=== PATIENT | male | born 2000 | race African-American/Black ===

== ENCOUNTER 2024-06-20 12:57 | Inpatient (IN) ==
[2024-06-20] MEDS: Lactated Ringers 1000 ml BAG 1,000 ML IV ONE ×2 (13:24)
[2024-06-20] MEDS: Piperacillin/Tazobac 3.375 BAG 3.375 GM/100 ML BAG IV ONE ×2 (13:25→21:19)
[2024-06-20 13:43] LABS: Hematocrit 45.5 % (38-53); Hemoglobin 15.1 g/dL (13.2-16.3); Mean Corpuscular Hemoglobin 32.4 pg (27-33); Mean Corpuscular Hgb Conc 33.3 g/dL (31-36); Mean Corpuscular Volume 97.4 fL (80-97); Mean Platelet Volume 8.9 fL (7.5-11.2); Platelet Count 215 10^3/uL (150-450); Red Blood Count 4.67 10^6/uL (4.06-5.63); Red Cell Distribution Width 15.5 % (12-17); White Blood Count 17.7 10^3/uL (3.6-10.2)
[2024-06-20 14:19] LABS: ABS Basophils 0.2 10^3/uL (0.0-0.1); ABS Lymphocytes 1.4 10^3/uL (1.0-4.8); ABS Monocytes 1.5 10^3/uL (0.0-1.1); ABS Neutrophils 14.6 10^3/uL (1.5-7.6); ABS Nucleated RBC 0.01 10^3/ul; Eosinophil % 0.3 %; Lymphocyte % 7.8 %; RBC Morphology Normal (Normal); Toxic Granulation 1+
[2024-06-20 14:29] LABS: Urine Appearance Clear; Urine Bilirubin Negative (Negative); Urine Blood Negative (Negative); Urine Color Light-Yellow; Urine Glucose Negative (Negative); Urine Ketones Negative (Negative); Urine Nitrite Negative (Negative); Urine Protein Negative (Negative); Urine Specific Gravity 1.013 (1.002-1.030); Urine Urobilinogen Negative (Negative); Urine pH 7.5 (5.0-8.0)
[2024-06-20 14:34] LABS: Activated Partial Thrombo Time 27.6 seconds (26.0-38.0); INR 1.29 (0.85-1.14)
[2024-06-20] MEDS: Ondansetron 4 mg VIAL 2 MG/ML 2 ml VIAL IV ONE (14:35)
[2024-06-20 14:42] LABS: Albumin 5.1 g/dL (3.2-5.2); Albumin/Globulin Ratio 2.1 (1-3); C Reactive Protein 4.35 mg/L (<8.01); Calcium 11.2 mg/dL (8.6-10.3); Creatinine, Serum 1.72 mg/dL (0.67-1.17); Globulin 2.4 g/dL (2-4); Potassium 4.6 mmol/L (3.5-5.0); Total Bilirubin 0.5 mg/dL (0.2-1.0); Total Protein 7.5 g/dL (6.4-8.9); eGFR CKD-EPI 56.9 (>60)
[2024-06-20 14:46] LABS: High Sensitivity Troponin 1 Hr 9 pg/mL (<20)
[2024-06-20] MEDS: Vancomycin 1,000 MG in NS 0.9% 250 ml 250 ML IVPB ONE (15:06)
[2024-06-20] MEDS: Iohexol 300 (CONTRAST) 10 ML SDV IV ONE (15:16)
[2024-06-20] MEDS: Prochlorperazine 5 mg/ml 2 ml VIAL (10 mg) IV ONE (15:58)
[2024-06-20] MEDS ORDERED: Zosyn per Pharmacy NOTE FOLLOW UP SCH ×2 (20:00)
[2024-06-20] MEDS ORDERED: Vancomycin per Pharmacy 1 EA NOTE FOLLOW UP SCH (20:00)
[2024-06-20] MEDS ORDERED: Acetaminophen IV 1 GM/100ML 1,000 MG/100 ML BAG IV ONE (20:04)
[2024-06-20] MEDS: Acetaminophen IV 1 GM/100ML 1,000 MG/100 ML BAG IV SCH (20:05)
[2024-06-20] MEDS ORDERED: Piperacillin/Tazobac 3.375 BAG 3.375 GM/100 ML BAG IV ONE (20:32)
[2024-06-20] MEDS: Lactated Ringers 1000 ml BAG 1,000 ML IV SCH ×2 (20:37→21:59)
[2024-06-20] MEDS ORDERED: Albuterol HFA INHALER 8 gm MDI INH PRN (20:50)
[2024-06-20] MEDS ORDERED: Amoxicillin/Clavul 875/125 TAB (Augmentin 875 tab) PO SCH (21:00)
[2024-06-21] MEDS: Vancomycin 1000 MG in NS 0.9% 250 ML IVPB SCH ×2 (01:53→06:18)
[2024-06-21] MEDS: ZOSYN 3.375 GM Q8H per EXTENDED INFUSION IV SCH ×2 (01:54→01:59)
[2024-06-21] MEDS ORDERED: Vancomycin 1000 MG in NS 0.9% 250 ML IVPB SCH (06:00)
[2024-06-21] MEDS: CMCS: FLUTICAS/UMECLI/VILANT 200-62.5-25 MDI (NF) INH SCH (07:44)
[2024-06-21 08:11] LABS: Hematocrit 39.3 % (38-53); Hemoglobin 13.3 g/dL (13.2-16.3); Mean Corpuscular Hemoglobin 32.8 pg (27-33); Mean Corpuscular Hgb Conc 33.8 g/dL (31-36); Mean Platelet Volume 8.8 fL (7.5-11.2); Platelet Count 154 10^3/uL (150-450); Red Blood Count 4.05 10^6/uL (4.06-5.63); Red Cell Distribution Width 15.7 % (12-17); White Blood Count 15.6 10^3/uL (3.6-10.2)
[2024-06-21 08:57] LABS: Albumin 3.8 g/dL (3.2-5.2); Albumin/Globulin Ratio 2.1 (1-3); Calcium 9.2 mg/dL (8.6-10.3); Creatinine, Serum 1.62 mg/dL (0.67-1.17); Globulin 1.8 g/dL (2-4); Potassium 3.9 mmol/L (3.5-5.0); Total Bilirubin 0.7 mg/dL (0.2-1.0); Total Protein 5.6 g/dL (6.4-8.9); eGFR CKD-EPI 61.2 (>60)
[2024-06-21 09:13] LABS: ABS Basophils 0.1 10^3/uL (0.0-0.1); ABS Lymphocytes 2.4 10^3/uL (1.0-4.8); ABS Monocytes 1.5 10^3/uL (0.0-1.1); ABS Neutrophils 11.6 10^3/uL (1.5-7.6); ABS Nucleated RBC 0.01 10^3/ul; Eosinophil % 0.1 %; Lymphocyte % 15.2 %
[2024-06-21] MEDS: POSACONAZOLE 100 MG PO SCH (09:44)
[2024-06-21 17:02] LABS: Fungitell Qualitative Result Negative (Negative); Fungitell Quantitative Value <31 pg/mL (<60 pg/mL)
[2024-06-21] MEDS: PTO: Ruxolitinib (NF) 5 MG TABLET PO SCH (21:45)
[2024-06-22 06:55] LABS: ABS Basophils 0.1 10^3/uL (0.0-0.1); ABS Eosinophils 0.2 10^3/uL (0.0-0.5); ABS Lymphocytes 2.8 10^3/uL (1.0-4.8); ABS Neutrophils 9.9 10^3/uL (1.5-7.6); Eosinophil % 1.6 %; Hematocrit 37.6 % (38-53); Hemoglobin 12.8 g/dL (13.2-16.3); Lymphocyte % 19.8 %; Mean Corpuscular Hemoglobin 33.3 pg (27-33); Mean Corpuscular Hgb Conc 34.2 g/dL (31-36); Mean Corpuscular Volume 97.5 fL (80-97); Mean Platelet Volume 8.6 fL (7.5-11.2); Platelet Count 158 10^3/uL (150-450); Red Blood Count 3.86 10^6/uL (4.06-5.63); Red Cell Distribution Width 15.1 % (12-17)
[2024-06-22 07:13] LABS: Albumin 3.7 g/dL (3.2-5.2); Albumin/Globulin Ratio 1.9 (1-3); Calcium 8.8 mg/dL (8.6-10.3); Creatinine, Serum 1.18 mg/dL (0.67-1.17); Globulin 1.9 g/dL (2-4); Magnesium 1.7 mg/dL (1.9-2.7); Potassium 3.8 mmol/L (3.5-5.0); Total Bilirubin 0.5 mg/dL (0.2-1.0); Total Protein 5.6 g/dL (6.4-8.9); eGFR CKD-EPI 89.5 (>60)
[2024-06-22] MEDS: Magnesium Sulfate 2 gm BAG 2 GM/50 ML BAG IVPB ONE (07:51)
[2024-06-22] MEDS: Vancomycin Trough Check NOTE FOLLOW UP ONE (08:05)
[2024-06-22 08:34] LABS: Anaplasma phagocytophilum Negative (Negative); B. miyamotoi PCR, B Negative (Negative); Babesia divergens/MO-1 Negative (Negative); Babesia ducani Negative (Negative); Ehrlichia chaffeensis Negative (Negative); Ehrlichia ewingii/canis Negative (Negative); Ehrlichia muris eauclairensis Negative (Negative)
[2024-06-22] MEDS ORDERED: Propofol 10 MG/ML 20 ML BTL ONE (08:44)
[2024-06-22] MEDS ORDERED: Rocuronium 50 mg VIAL 10 mg/ml 5 ml VIAL (50 mg) ONE (08:44)
[2024-06-22] MEDS ORDERED: Lidocaine 2% PF 5 ML VIAL ONE (08:44)
[2024-06-22] MEDS ORDERED: Benzocaine/Butamben/Tetracain (CETACAINE - SINGLE USE) 5 gm TOPICAL ONE (08:45)
[2024-06-22] MEDS ORDERED: fentaNYL 100 mcg/2 ml 50 MCG/ML VIAL ONE (08:48)
[2024-06-22] MEDS ORDERED: Midazolam 2 mg/2 ml VIAL 1 mg/ml 2 ml VIAL (2 mg) ONE (08:48)
[2024-06-22] MEDS ORDERED: Naloxone 0.4 mg VIAL 0.4 mg/ml 1 ml VIAL IV PRN (08:51)
[2024-06-22] MEDS ORDERED: fentaNYL 100 mcg/2 ml 50 MCG/ML VIAL IV PRN (08:51)
[2024-06-22] MEDS ORDERED: Ondansetron 4 mg VIAL 2 MG/ML 2 ml VIAL IV PRN (08:51)
[2024-06-22] MEDS ORDERED: Dexamethasone IV 4 MG/ML VIAL 1 ml VIAL ONE (09:26)
[2024-06-22] MEDS ORDERED: Ondansetron 4 mg VIAL 2 MG/ML 2 ml VIAL ONE (09:26)
[2024-06-22] MEDS ORDERED: Albuterol 2.5mg/3 ml (0.083%) NEB.SOLN INH ONE (10:07)
[2024-06-22] MEDS ORDERED: Albuterol/Ipratropium NEB.SOL (2.5/0.5 MG) 3 ML NEB.SOLN ONE ×2 (10:09→10:18)
[2024-06-22] MEDS: Albuterol/Ipratropium NEB.SOL (2.5/0.5 MG) 3 ML NEB.SOLN INH ONE (10:12)
[2024-06-22] MEDS: Lactated Ringers 1000 ml BAG 1,000 ML IV SCH ×2 (13:27→22:26)
[2024-06-22 14:41] LABS: Aspergillus (Galactomannan) Ag <0.500 index (<0.5)
[2024-06-22] MEDS: Vancomycin 1000 MG in NS 0.9% 250 ML IVPB SCH (15:47)
[2024-06-22 16:42] LABS: Adenovirus Undetected (Undetected); Bordetella parapertussis Undetected (Undetected); Bordetella pertussis Undetected (Undetected); Chlamydophila pneumoniae Undetected (Undetected); Coronavirus 229E Undetected (Undetected); Coronavirus HKU1 Undetected (Undetected); Coronavirus NL63 Undetected (Undetected); Coronavirus OC43 Undetected (Undetected); Human Metapneumovirus Undetected (Undetected); Human Rhinovirus/Enterovirus Undetected (Undetected); Influenza A Undetected (Undetected); Influenza B Undetected (Undetected); Mycoplasmoides pneumoniae Undetected (Undetected); Parainfluenza Virus 1 Undetected (Undetected); Parainfluenza Virus 2 Undetected (Undetected); Parainfluenza Virus 3 Undetected (Undetected); Parainfluenza Virus 4 Undetected (Undetected); Respiratory Syncytial Virus Undetected (Undetected); Specimen Source NASOPHARYNGEAL SWAB
[2024-06-22] MEDS: Acetaminophen IV 1 GM/100ML 1,000 MG/100 ML BAG IV ONE (19:26)
[2024-06-22] MEDS: Buffered Lidocaine 1% SYRIN 1 ml INTRADERM ONE (19:27)
[2024-06-22] MEDS: Scopolamine 1 mg/72hr PATCH TRANSDERM ONE (19:27)
[2024-06-22 21:50] LABS: CMV DNA DETECT/QT, P Undetected IU/mL (Undetected)
[2024-06-23 06:47] LABS: ABS Basophils 0.1 10^3/uL (0.0-0.1); ABS Lymphocytes 1.5 10^3/uL (1.0-4.8); ABS Monocytes 0.9 10^3/uL (0.0-1.1); ABS Neutrophils 12.7 10^3/uL (1.5-7.6); Hematocrit 37.3 % (38-53); Hemoglobin 12.6 g/dL (13.2-16.3); Lymphocyte % 9.7 %; Mean Corpuscular Hemoglobin 33.1 pg (27-33); Mean Corpuscular Hgb Conc 33.8 g/dL (31-36); Mean Corpuscular Volume 97.8 fL (80-97); Mean Platelet Volume 9.2 fL (7.5-11.2); Platelet Count 169 10^3/uL (150-450); Red Blood Count 3.81 10^6/uL (4.06-5.63); Red Cell Distribution Width 15.3 % (12-17); White Blood Count 15.2 10^3/uL (3.6-10.2)
[2024-06-23 07:22] LABS: Albumin 3.8 g/dL (3.2-5.2); Albumin/Globulin Ratio 1.9 (1-3); Calcium 9.4 mg/dL (8.6-10.3); Creatinine, Serum 1.13 mg/dL (0.67-1.17); Magnesium 1.8 mg/dL (1.9-2.7); Potassium 4.1 mmol/L (3.5-5.0); Total Bilirubin 0.3 mg/dL (0.2-1.0); Total Protein 5.8 g/dL (6.4-8.9); eGFR CKD-EPI 94.2 (>60)
[2024-06-23] MEDS: RUXOLITINIB 5 MG PO SCH (08:26)
[2024-06-23] MEDS: Sulfamethox/Trimethoprim DS TAB 800/160 mg PO SCH (08:36)
[2024-06-23] MEDS: Ondansetron 4 mg VIAL 2 MG/ML 2 ml VIAL IV PRN (09:35)
[2024-06-23] MEDS: Lactated Ringers 1000 ml BAG 1,000 ML IV SCH (10:15)
[2024-06-23 15:15] LABS: Ferritin 550.2 ng/mL (24-336)
[2024-06-24 07:52] LABS: Hematocrit 36.8 % (38-53); Hemoglobin 12.4 g/dL (13.2-16.3); Mean Corpuscular Hemoglobin 32.8 pg (27-33); Mean Corpuscular Hgb Conc 33.6 g/dL (31-36); Mean Corpuscular Volume 97.7 fL (80-97); Mean Platelet Volume 9.1 fL (7.5-11.2); Platelet Count 163 10^3/uL (150-450); Red Blood Count 3.77 10^6/uL (4.06-5.63); Red Cell Distribution Width 15.4 % (12-17); White Blood Count 13.8 10^3/uL (3.6-10.2)
[2024-06-24 09:04] LABS: ABS Basophils 0.1 10^3/uL (0.0-0.1); ABS Lymphocytes 2.3 10^3/uL (1.0-4.8); ABS Monocytes 1.2 10^3/uL (0.0-1.1); ABS Neutrophils 10.2 10^3/uL (1.5-7.6); ABS Nucleated RBC 0.02 10^3/ul; Eosinophil % 0.2 %; Lymphocyte % 16.6 %; Nucleated Red Blood Cells % 0.1 %/100WBC (0.0-0.8)
[2024-06-24] MEDS: Vancomycin 1,250 MG in NS 0.9% 250 ml 250 ML IVPB SCH (09:53)
[2024-06-24] MEDS: Vancomycin Trough Check NOTE FOLLOW UP ONE (09:53)
[2024-06-25 08:30] LABS: Hematocrit 39.4 % (38-53); Hemoglobin 13.2 g/dL (13.2-16.3); Mean Corpuscular Hemoglobin 32.5 pg (27-33); Mean Corpuscular Hgb Conc 33.5 g/dL (31-36); Mean Corpuscular Volume 97.1 fL (80-97); Mean Platelet Volume 8.6 fL (7.5-11.2); Platelet Count 177 10^3/uL (150-450); Red Blood Count 4.05 10^6/uL (4.06-5.63); Red Cell Distribution Width 15.6 % (12-17); White Blood Count 11.3 10^3/uL (3.6-10.2)
[2024-06-25 09:09] LABS: Anion Gap 9 mmol/L (2-16); Blood Urea Nitrogen 13 mg/dL (6-24); CO2 Carbon Dioxide 28 mmol/L (22-32); Chloride 103 mmol/L (101-111); Creatinine, Serum 1.15 mg/dL (0.67-1.17); Glucose 86 mg/dL (70-100); Magnesium 1.8 mg/dL (1.9-2.7); Sodium 140 mmol/L (135-145); eGFR CKD-EPI 92.3 (>60)
[2024-06-25 09:15] LABS: RBC Morphology Normal (Normal)
[2024-06-25 09:37] LABS: Body Fluid Source Broncheoalveolar lav
[2024-06-25 10:02] LABS: ABS Basophils 0.1 10^3/uL (0.0-0.1); ABS Eosinophils 0.2 10^3/uL (0.0-0.5); ABS Nucleated RBC 0.02 10^3/ul; Eosinophil % 1.5 %; Lymphocyte % 26.4 %; Nucleated Red Blood Cells % 0.1 %/100WBC (0.0-0.8)
[2024-06-25 12:33] LABS: Body Fluid Other Cells 1; Body Fluid Total Cells Counted 300
[2024-06-25 13:09] LABS: Body Fluid Total Cells Counted 300
[2024-06-25 13:10] LABS: Body Fluid Appearance Cloudy
[2024-06-25 13:12] LABS: Body Fluid Color Pink
[2024-06-25 13:13] LABS: Body Fluid Appearance Cloudy; Body Fluid Color Pink
[2024-06-25 14:50] VITALS: BP 120/68
[2024-06-26] MEDS ORDERED: Vancomycin Trough Check NOTE FOLLOW UP ONE (09:30)
[2024-06-26 14:16] LABS: IgG Immunoblot Negative (Negative); IgM Immunoblot Negative (Negative)
== END 2024-06-25 18:55 | disposition home or self-care (01) | DRG 720 ==
LOC: EDHOLD 12:57 → ED 12:57 → SUATTDRO 19:07 → MEDTELE 23:13 → SUATTDRO 06-21 08:00
PROVIDERS: ADMIT Internal Medicine; ATTEND Internal Medicine

== ENCOUNTER 2024-07-18 16:24 | Observation (INO) ==
[2024-07-18 18:02] LABS: INR 1.3 (0.85-1.14)
[2024-07-18 18:14] LABS: High Sensitivity Troponin 1 Hr 4 pg/mL (<20)
[2024-07-18 18:54] LABS: Albumin 4.8 g/dL (3.2-5.2); Albumin/Globulin Ratio 1.8 (1-3); C Reactive Protein 85.25 mg/L (<8.01); Calcium 10.3 mg/dL (8.6-10.3); Creatinine, Serum 1.54 mg/dL (0.67-1.17); Globulin 2.6 g/dL (2-4); Potassium 4.7 mmol/L (3.5-5.0); Total Bilirubin 0.5 mg/dL (0.2-1.0); Total Protein 7.4 g/dL (6.4-8.9)
[2024-07-18 20:29] LABS: Hematocrit 39.1 % (38-53); Hemoglobin 12.9 g/dL (13.2-16.3); Mean Corpuscular Hgb Conc 32.9 g/dL (31-36); Mean Corpuscular Volume 97.3 fL (80-97); Mean Platelet Volume 8.9 fL (7.5-11.2); Platelet Count 166 10^3/uL (150-450); Red Blood Count 4.02 10^6/uL (4.06-5.63); Red Cell Distribution Width 15.1 % (12-17); White Blood Count 16.7 10^3/uL (3.6-10.2)
[2024-07-18 20:53] LABS: ABS Basophils 0.1 10^3/uL (0.0-0.1); ABS Eosinophils 0.1 10^3/uL (0.0-0.5); ABS Lymphocytes 2.9 10^3/uL (1.0-4.8); ABS Monocytes 2.4 10^3/uL (0.0-1.1); ABS Neutrophils 11.2 10^3/uL (1.5-7.6); ABS Nucleated RBC 0.01 10^3/ul; Eosinophil % 0.5 %; Lymphocyte % 17.6 %; Nucleated Red Blood Cells % 0.1 %/100WBC (0.0-0.8)
[2024-07-18] MEDS: Piperacillin/Tazobac 3.375 BAG 3.375 GM/100 ML BAG IV ONE (21:42)
[2024-07-18] MEDS: Lactated Ringers 1000 ml BAG 1,000 ML IV ONE (22:23)
[2024-07-18 22:55] LABS: Rapid Strep Molecular Negative (Negative)
[2024-07-19 00:23] LABS: Urine Appearance Clear; Urine Bilirubin Negative (Negative); Urine Blood Negative (Negative); Urine Color Light-Yellow; Urine Glucose Negative (Negative); Urine Ketones Negative (Negative); Urine Nitrite Negative (Negative); Urine Protein Trace (Negative); Urine Specific Gravity >1.050 (1.002-1.030); Urine Urobilinogen Negative (Negative)
[2024-07-19] MEDS ORDERED: Albuterol HFA INHALER 8 gm MDI INH PRN (04:55)
[2024-07-19 07:11] LABS: Hematocrit 39.5 % (38-53); Hemoglobin 13.3 g/dL (13.2-16.3); Mean Corpuscular Hemoglobin 32.9 pg (27-33); Mean Corpuscular Hgb Conc 33.7 g/dL (31-36); Mean Corpuscular Volume 97.4 fL (80-97); Mean Platelet Volume 8.7 fL (7.5-11.2); Platelet Count 152 10^3/uL (150-450); Red Blood Count 4.05 10^6/uL (4.06-5.63); Red Cell Distribution Width 15.1 % (12-17); White Blood Count 13.1 10^3/uL (3.6-10.2)
[2024-07-19 08:24] LABS: ABS Eosinophils 0.3 10^3/uL (0.0-0.5); ABS Lymphocytes 2.3 10^3/uL (1.0-4.8); ABS Monocytes 1.7 10^3/uL (0.0-1.1); ABS Neutrophils 8.8 10^3/uL (1.5-7.6); Eosinophil % 2.4 %; Lymphocyte % 17.1 %
[2024-07-19 08:30] LABS: Calcium 9.6 mg/dL (8.6-10.3); Creatinine, Serum 1.34 mg/dL (0.67-1.17); Potassium 4.1 mmol/L (3.5-5.0); eGFR CKD-EPI 76.8 (>60)
[2024-07-19] MEDS: cefTRIAXone 1 gm/50 mL D5W 1 GM/50 ML BAG IV SCH (09:17)
[2024-07-19] MEDS: Iohexol 350 (CONTRAST) 500 ML MDV IV ONE (13:40)
[2024-07-19] MEDS: FLUTICAS/UMECLI/VILANT 200-62.5-25 MDI (NF) INH SCH (13:40)
[2024-07-19] MEDS: PTO: Ruxolitinib (NF) 5 MG TABLET PO SCH (13:41)
[2024-07-19] MEDS: Lactated Ringers 1000 ml BAG 1,000 ML IV SCH (16:59)
[2024-07-19 17:42] LABS: HIV 4th Generation Nonreactive (Nonreactive)
[2024-07-19 19:00] LABS: Hepatitis C Antibody Negative (Negative)
[2024-07-20 06:28] LABS: ABS Eosinophils 0.4 10^3/uL (0.0-0.5); ABS Lymphocytes 2.9 10^3/uL (1.0-4.8); ABS Neutrophils 5.4 10^3/uL (1.5-7.6); Eosinophil % 3.7 %; Hematocrit 39.2 % (38-53); Mean Corpuscular Hemoglobin 32.4 pg (27-33); Mean Corpuscular Hgb Conc 33.2 g/dL (31-36); Mean Corpuscular Volume 97.5 fL (80-97); Mean Platelet Volume 9.1 fL (7.5-11.2); Platelet Count 162 10^3/uL (150-450); Red Blood Count 4.02 10^6/uL (4.06-5.63); White Blood Count 9.8 10^3/uL (3.6-10.2)
[2024-07-20 06:49] LABS: Calcium 9.6 mg/dL (8.6-10.3); Creatinine, Serum 1.22 mg/dL (0.67-1.17); Potassium 4.3 mmol/L (3.5-5.0)
[2024-07-20] MEDS: POSACONAZOLE 100 MG PO SCH (10:47)
[2024-07-20 12:54] VITALS: BP 121/78
[2024-07-20 14:17] LABS: Cytomegalovirus IgG Antibody Positive (Negative)
[2024-07-20 16:42] LABS: Adenovirus Undetected (Undetected); Bordetella parapertussis Undetected (Undetected); Bordetella pertussis Undetected (Undetected); Chlamydophila pneumoniae Undetected (Undetected); Coronavirus 229E Undetected (Undetected); Coronavirus HKU1 Undetected (Undetected); Coronavirus NL63 Undetected (Undetected); Coronavirus OC43 Undetected (Undetected); Human Metapneumovirus Undetected (Undetected); Human Rhinovirus/Enterovirus Undetected (Undetected); Influenza A Undetected (Undetected); Influenza B Undetected (Undetected); Mycoplasmoides pneumoniae Undetected (Undetected); Parainfluenza Virus 1 Undetected (Undetected); Parainfluenza Virus 2 Undetected (Undetected); Parainfluenza Virus 3 Undetected (Undetected); Parainfluenza Virus 4 Undetected (Undetected); Respiratory Syncytial Virus Undetected (Undetected); Specimen Source NASOPHARYNGEAL SWAB
[2024-07-21 14:34] LABS: EBV Capsid Ag IgG Ab Negative (Negative); EBV Capsid Ag IgM Ab Positive (Negative); Epstein-Barr Nuclear Antigen Positive (Negative)
[2024-07-21 16:41] LABS: Anaplasma phagocytophilum Negative (Negative); B. miyamotoi PCR, B Negative (Negative); Babesia divergens/MO-1 Negative (Negative); Babesia ducani Negative (Negative); Ehrlichia chaffeensis Negative (Negative); Ehrlichia ewingii/canis Negative (Negative); Ehrlichia muris eauclairensis Negative (Negative)
[2024-07-25 14:00] LABS: IgG Immunoblot Negative (Negative); IgM Immunoblot Uninterpretable (Negative)
== END 2024-07-20 17:00 | disposition home or self-care (01) ==
LOC: EDHOLD 16:24 → ED 16:24 → SUATTDRO 07-19 03:47 → MED 07-19 10:23
PROVIDERS: ADMIT Internal Medicine; ATTEND Student in an Organized Health Care Education/Training Program

== ENCOUNTER 2024-07-30 15:25 | Observation (INO) ==
[2024-07-30] MEDS: Acetaminophen IV 1 GM/100ML 1,000 MG/100 ML BAG IV ONE ×2 (16:42→22:44)
[2024-07-30] MEDS: Morphine 4 MG/ML VIAL (1 ml) IV ONE (16:42)
[2024-07-30] MEDS: Ondansetron 4 mg VIAL 2 MG/ML 2 ml VIAL IV ONE (17:19)
[2024-07-30] MEDS: HYDROmorphone 1 MG/1 ML SYRINGE IV SLOW PU ONE (17:19)
[2024-07-30] MEDS: HYDROmorphone 1 MG/1 ML SYRINGE IV ONE (19:22)
[2024-07-30] MEDS: Ketamine HCL 50 mg/ml 10 ml VIAL (500 MG) IV ONE (21:42)
[2024-07-30] MEDS: Morphine 2 MG/ML SYRINGE IV ONE (21:42)
[2024-07-30] MEDS ORDERED: Albuterol HFA INHALER 8 gm MDI INH PRN (23:38)
[2024-07-31 00:53] LABS: Hematocrit 39.8 % (38-53); Hemoglobin 13.3 g/dL (13.2-16.3); Mean Corpuscular Hemoglobin 32.3 pg (27-33); Mean Corpuscular Hgb Conc 33.3 g/dL (31-36); Mean Platelet Volume 8.4 fL (7.5-11.2); Platelet Count 200 10^3/uL (150-450); Red Blood Count 4.11 10^6/uL (4.06-5.63); Red Cell Distribution Width 15.4 % (12-17); White Blood Count 15.2 10^3/uL (3.6-10.2)
[2024-07-31 01:38] LABS: Calcium 9.9 mg/dL (8.6-10.3); Creatinine, Serum 1.26 mg/dL (0.67-1.17); Potassium 4.2 mmol/L (3.5-5.0); eGFR CKD-EPI 82.7 (>60)
[2024-07-31] MEDS ORDERED: Naloxone 0.4 mg VIAL 0.4 mg/ml 1 ml VIAL IV PUSH PRN (01:50)
[2024-07-31] MEDS: HYDROmorphone 1 MG/1 ML SYRINGE IV SLOW PU PRN (02:19)
[2024-07-31] MEDS: Lactated Ringers 1000 ml BAG 1,000 ML IV SCH (02:20)
[2024-07-31 06:38] LABS: ABS Basophils 0.1 10^3/uL (0.0-0.1); ABS Eosinophils 0.3 10^3/uL (0.0-0.5); ABS Lymphocytes 3.2 10^3/uL (1.0-4.8); ABS Neutrophils 8.3 10^3/uL (1.5-7.6); Eosinophil % 2.2 %; Hematocrit 40.4 % (38-53); Hemoglobin 13.6 g/dL (13.2-16.3); Mean Corpuscular Hemoglobin 32.5 pg (27-33); Mean Corpuscular Hgb Conc 33.6 g/dL (31-36); Mean Corpuscular Volume 96.9 fL (80-97); Mean Platelet Volume 8.6 fL (7.5-11.2); Platelet Count 196 10^3/uL (150-450); Red Blood Count 4.17 10^6/uL (4.06-5.63); White Blood Count 12.9 10^3/uL (3.6-10.2)
[2024-07-31 07:12] LABS: Calcium 9.8 mg/dL (8.6-10.3); Creatinine, Serum 1.24 mg/dL (0.67-1.17); Potassium 4.4 mmol/L (3.5-5.0); eGFR CKD-EPI 84.3 (>60)
[2024-07-31] MEDS: PTO: Ruxolitinib (NF) 5 MG TABLET PO SCH (08:18)
[2024-07-31] MEDS: POSACONAZOLE 100 MG PO SCH (08:18)
[2024-07-31] MEDS: CMCS: FLUTICAS/UMECLI/VILANT 200-62.5-25 MDI (NF) INH SCH (09:59)
[2024-07-31] MEDS: NF: Lifitegrast (NF) 1 BTL BOTH EYES SCH (10:04)
[2024-07-31] MEDS: Morphine 2 MG/ML SYRINGE IV PRN (12:40)
[2024-07-31] MEDS ORDERED: Magnesium Hydroxide LIQ 30 ML UDC PO PRN (17:27)
[2024-07-31] MEDS ORDERED: Naloxone Nasal Spray 4 MG/0.1 ML NASAL.SPR INTRANASAL PRN (17:28)
[2024-07-31] MEDS: Senna TAB 8.6 mg TAB PO SCH (20:36)
[2024-08-01] MEDS: Polyethylene Glycol 3350 17 GM PACKET PO SCH (08:33)
[2024-08-01 09:07] LABS: ABS Eosinophils 0.4 10^3/uL (0.0-0.5); ABS Lymphocytes 2.2 10^3/uL (1.0-4.8); Eosinophil % 3.3 %; Hematocrit 41.3 % (38-53); Hemoglobin 13.8 g/dL (13.2-16.3); Lymphocyte % 20.7 %; Mean Corpuscular Hemoglobin 32.5 pg (27-33); Mean Corpuscular Hgb Conc 33.3 g/dL (31-36); Mean Corpuscular Volume 97.7 fL (80-97); Mean Platelet Volume 8.5 fL (7.5-11.2); Platelet Count 204 10^3/uL (150-450); Red Blood Count 4.23 10^6/uL (4.06-5.63); Red Cell Distribution Width 15.4 % (12-17); White Blood Count 10.7 10^3/uL (3.6-10.2)
[2024-08-01 10:04] LABS: Creatinine, Serum 1.22 mg/dL (0.67-1.17); Potassium 4.4 mmol/L (3.5-5.0)
[2024-08-01] MEDS ORDERED: Ondansetron ODT 4 mg TAB 4 MG TAB SL PRN (11:27)
[2024-08-01 14:01] VITALS: BP 116/62
[2024-08-04] MEDS ORDERED: Sulfamethox/Trimethoprim DS TAB 800/160 mg PO SCH (09:00)
== END 2024-08-01 16:29 | disposition home or self-care (01) ==
LOC: EDHOLD 15:25 → ED 15:25 → SUATTDRO 22:54 → SSU 23:46
PROVIDERS: ADMIT Internal Medicine; ATTEND Student in an Organized Health Care Education/Training Program